=== PATIENT | female | born 1955 | race Asian ===

== ENCOUNTER 2017-01-07 07:27 | Inpatient (IN) | payer OTHER ==
[~2017-01-07] VITALS: Ht 167.6 cm; Wt 84.0 kg
[2017-01-07] MEDS ORDERED: VERAPAMIL HYDR240 MG PO (08:03)
[2017-01-07 08:12] LABS: BASOPHIL % 0.7 % (0-2); PLATELET COUNT 232 x10^3mcL (130-400)
[2017-01-07 08:14] LABS: RED CELL DISTRIBUTION WIDTH 14.6 % (11.5-14.5)
[2017-01-07 08:24] LABS: CALCIUM 9.4 mg/dL (8.5-10.1); CARBON DIOXIDE 25.4 mmol/L (21-32); CHLORIDE SERUM 107 mmol/L (98-107); CREATININE SERUM 0.8 mg/dL (0.6-1.0); GFR1 > 60 mL/min; GLUCOSE SERUM 140 mg/dL (74-106); POTASSIUM SERUM 4.1 mmol/L (3.5-5.1); SODIUM SERUM 142 mmol/L (136-145)
[2017-01-07 08:36] LABS: ALKALINE PHOSPHATASE 78 U/L (46-116); ALT/SGPT 57 U/L (14-59); AST/SGOT 40 U/L (15-37); TOTAL PROTEIN, SERUM 7.7 g/dL (6.4-8.2)
[2017-01-07 08:38] LABS: ALBUMIN 3.1 g/dL (3.4-5.0); T4(THYROXINE) 15.6 ug/dL (4.7-13.3)
[2017-01-07 10:02] LABS: AMPHETAMINE QUAL UR NONE DETECTED (NEG <=1000)
[2017-01-07 14:00] VITALS: BP 132/63
[2017-01-07 17:00] VITALS: BP 112/79
[2017-01-07 20:27] VITALS: BP 145/69
[2017-01-08 04:42] LABS: BASOPHIL % 0.1 % (0-2); PLATELET COUNT 217 x10^3mcL (130-400); RED CELL DISTRIBUTION WIDTH 14.5 % (11.5-14.5)
[2017-01-08 04:48] LABS: CALCIUM 8.8 mg/dL (8.5-10.1); CARBON DIOXIDE 25.4 mmol/L (21-32); CHLORIDE SERUM 106 mmol/L (98-107); CHOLESTEROL 136 mg/dL (<200); CHOLESTEROL/HDL RATIO 3.8; CREATININE SERUM 0.7 mg/dL (0.6-1.0); GFR1 > 60 mL/min; GLUCOSE SERUM 126 mg/dL (74-106); HDL CHOLESTEROL 36 mg/dL (40-60); SODIUM SERUM 137 mmol/L (136-145); TRIGLYCERIDES 94 mg/dL (<150)
[2017-01-08 05:23] VITALS: BP 160/62
[2017-01-08 08:48] LABS: FREE T4 3.1 ng/dL (0.76-1.46)
[2017-01-08 08:50] VITALS: BP 137/66
[2017-01-08 08:59] LABS: FREE THYROXINE INDEX 5.9 ug/dL (1.4-4.5); T4(THYROXINE) 13.5 ug/dL (4.7-13.3)
[2017-01-08 09:22] LABS: T3 TOTAL 1.93 ng/mL
[2017-01-08 13:45] VITALS: BP 142/79
[2017-01-08 15:52] LABS: UA SPECIFIC GRAVITY <=1.005 (1.005-1.035); microscopic required? YES; urine erythrocyte TRACE (NEGATIVE)
[2017-01-08 17:38] VITALS: BP 149/67
[2017-01-08 22:05] VITALS: BP 177/87
[2017-01-09] VITALS: BP 160/78
[2017-01-09 06:40] VITALS: BP 176/80
[2017-01-09 07:17] VITALS: BP 164/71
[2017-01-09] MEDS ORDERED: ZES10 PO (07:49)
[2017-01-09] MEDS ORDERED: TAP5 PO (07:50)
[2017-01-09 09:25] VITALS: BP 158/70
[2017-01-09 09:54] VITALS: BP 158/70
== END 2017-01-09 10:45 | disposition home or self-care (01) | DRG 643 ==
LOC: ED 07:27 → DU 09:37
PROVIDERS: Emergency Medicine; ADMIT Family Medicine
DX: E05.90 Thyrotoxicosis, unspecified without thyrotoxic crisis or storm (principal); N17.0 Acute kidney failure with tubular necrosis; I47.1 Supraventricular tachycardia; I10 Essential (primary) hypertension; R73.03 Prediabetes; Z71.3 Dietary counseling and surveillance
CPT/HCPCS: 82962; 83880; 84439; J0153; J1644; J3475; J3490; J7030; J8540; Q0092

== ENCOUNTER 2017-02-04 10:00 | Emergency (ER) | payer OTHER ==
[~2017-02-04 10:00] MED LIST: TAP5 PO; VERAPAMIL HYDR240 MG PO; ZES10 PO
[2017-02-04 10:54] LABS: BASOPHIL % 0.3 % (0-2); PLATELET COUNT 240 x10^3mcL (130-400); RED CELL DISTRIBUTION WIDTH 13.3 % (11.5-14.5)
[2017-02-04 11:04] LABS: CARBON DIOXIDE 31.5 mmol/L (21-32); CHLORIDE SERUM 103 mmol/L (98-107); CREATININE SERUM 0.9 mg/dL (0.6-1.0); GFR1 > 60 mL/min; GLUCOSE SERUM 99 mg/dL (74-106); POTASSIUM SERUM 3.9 mmol/L (3.5-5.1); SODIUM SERUM 140 mmol/L (136-145)
[2017-02-04 11:09] LABS: ALBUMIN 3.1 g/dL (3.4-5.0); ALKALINE PHOSPHATASE 84 U/L (46-116); ALT/SGPT 22 U/L (14-59); AST/SGOT 19 U/L (15-37); BILIRUBIN TOTAL 0.4 mg/dL (0.20-1.00); TOTAL PROTEIN, SERUM 7.7 g/dL (6.4-8.2)
[2017-02-04 11:39] VITALS: BP 135/73
== END 2017-02-04 12:02 | disposition home or self-care (01) ==
LOC: ED 10:00
PROVIDERS: Emergency Medicine
DX: T38.2X1A Poisoning by antithyroid drugs, accidental (unintentional), initial encounter (principal); Y92.89 Other specified places as the place of occurrence of the external cause; I10 Essential (primary) hypertension; E07.9 Disorder of thyroid, unspecified
CPT/HCPCS: 36415; Q0092

== ENCOUNTER 2017-02-18 21:01 | Emergency (ER) | payer OTHER ==
[2017-02-19 02:39] VITALS: BP 158/80
== END 2017-02-19 02:39 | disposition home or self-care (01) ==
LOC: ED 21:01
DX: Z76.0 Encounter for issue of repeat prescription (principal); I10 Essential (primary) hypertension; Z79.899 Other long term (current) drug therapy

== ENCOUNTER 2017-03-01 08:46 | Inpatient (IN) | payer OTHER ==
[~2017-03-01] VITALS: Ht 162.6 cm; Wt 85.8 kg
[2017-03-01 10:25] LABS: BASOPHIL % 0.3 % (0-2); PLATELET COUNT 275 x10^3mcL (130-400)
[2017-03-01 10:34] LABS: CARBON DIOXIDE 28.6 mmol/L (21-32); POTASSIUM SERUM 3.9 mmol/L (3.5-5.1)
[2017-03-01] MEDS ORDERED: METHIMAZOLE5 MG PO (10:36)
[2017-03-01 10:39] LABS: BILIRUBIN TOTAL 0.5 mg/dL (0.20-1.00)
[2017-03-01 10:40] LABS: ALBUMIN 3.3 g/dL (3.4-5.0)
[2017-03-01] MEDS ORDERED: IND40 PO (10:41)
[2017-03-01] MEDS ORDERED: FIORICET1 CAP PO (10:42)
[2017-03-01 13:07] LABS: CHOLESTEROL/HDL RATIO 4.1; PHOSPHOROUS 3.4 mg/dL (2.5-4.9)
[2017-03-01 13:14] LABS: UA SPECIFIC GRAVITY <=1.005 (1.005-1.035); microscopic required? YES; urine erythrocyte TRACE (NEGATIVE)
[2017-03-01 13:18] LABS: FREE T4 0.96 ng/dL (0.76-1.46); FREE THYROXINE INDEX 2.3 ug/dL (1.4-4.5)
[2017-03-01 13:20] LABS: T3 TOTAL 0.74 ng/mL
[2017-03-01 13:57] LABS: AMPHETAMINE QUAL UR NONE DETECTED (NEG <=1000)
[2017-03-01 14:06] VITALS: BP 99/57
[2017-03-01 16:55] VITALS: BP 121/62
[2017-03-01 17:48] VITALS: Ht 162.6 cm; Wt 85.8 kg
[2017-03-01 22:44] VITALS: BP 141/70
[2017-03-02 04:14] LABS: CARBON DIOXIDE 26.4 mmol/L (21-32); CHLORIDE SERUM 108 mmol/L (98-107); CREATININE SERUM 0.9 mg/dL (0.6-1.0); GFR1 > 60 mL/min; GLUCOSE SERUM 95 mg/dL (74-106); MAGNESIUM 2.1 mg/dL (1.8-2.4); POTASSIUM SERUM 4.1 mmol/L (3.5-5.1); SODIUM SERUM 141 mmol/L (136-145)
[2017-03-02 07:13] VITALS: BP 137/65
[2017-03-02 10:01] VITALS: BP 140/67
[2017-03-02 13:16] VITALS: BP 144/68
[2017-03-02 18:30] VITALS: BP 135/65
[2017-03-02 22:21] VITALS: BP 136/109
[2017-03-03 08:54] LABS: CALCIUM 9.2 mg/dL (8.5-10.1); CARBON DIOXIDE 31.3 mmol/L (21-32); CHLORIDE SERUM 105 mmol/L (98-107); CREATININE SERUM 0.8 mg/dL (0.6-1.0); GFR1 > 60 mL/min; GLUCOSE SERUM 91 mg/dL (74-106); POTASSIUM SERUM 4.3 mmol/L (3.5-5.1); SODIUM SERUM 143 mmol/L (136-145)
[2017-03-03 08:59] LABS: BASOPHIL % 0.6 % (0-2); PLATELET COUNT 244 x10^3mcL (130-400); RED CELL DISTRIBUTION WIDTH 14.3 % (11.5-14.5)
[2017-03-03 09:16] VITALS: BP 142/75
[2017-03-03] MEDS ORDERED: LOSARTAN POTASS25 M1 PO (09:33)
[2017-03-03 11:04] VITALS: BP 142/75
[2017-03-03] MEDS ORDERED: TAP5 PO (11:30)
== END 2017-03-03 12:25 | disposition home or self-care (01) | DRG 309 ==
LOC: ED 08:46 → DU 10:51
PROVIDERS: Emergency Medicine; ADMIT Family Medicine
DX: R00.1 Bradycardia, unspecified (principal); E44.0 Moderate protein-calorie malnutrition; E03.9 Hypothyroidism, unspecified; I10 Essential (primary) hypertension; E05.90 Thyrotoxicosis, unspecified without thyrotoxic crisis or storm; E78.00 Pure hypercholesterolemia, unspecified; T44.7X5A Adverse effect of beta-adrenoreceptor antagonists, initial encounter; E78.5 Hyperlipidemia, unspecified; E87.8 Other disorders of electrolyte and fluid balance, not elsewhere classified; E66.9 Obesity, unspecified; Z68.32 Body mass index [BMI] 32.0-32.9, adult; Y92.018 Other place in single-family (private) house as the place of occurrence of the external cause; Z90.49 Acquired absence of other specified parts of digestive tract
CPT/HCPCS: 82962; 83880; 84439; J7030; Q0092

== ENCOUNTER → 2017-09-19 | Outpatient (CLI) | payer OTHER ==
[~2017-09-19] MED LIST changes: +FIORICET1 CAP PO; +IND40 PO; +LOSARTAN POTASS25 M1 PO; +METHIMAZOLE5 MG PO
== END | disposition home or self-care (01) ==
LOC: US 14:44
PROC: BG44ZZZ Ultrasonography of Thyroid Gland (ICD-10-PCS; principal; 2017-09-19)
DX: E05.90 Thyrotoxicosis, unspecified without thyrotoxic crisis or storm (principal)

== ENCOUNTER → 2017-11-11 | Outpatient (CLI) | payer OTHER ==
[2017-11-11 10:39] LABS: BASOPHIL % 0.4 % (0-2); PLATELET COUNT 251 x10^3mcL (130-400); RED CELL DISTRIBUTION WIDTH 14.1 % (11.5-14.5)
[2017-11-11 11:10] LABS: T3 TOTAL 0.88 ng/mL
[2017-11-11 11:25] LABS: ALKALINE PHOSPHATASE 81 U/L (46-116); ALT/SGPT 26 U/L (14-59); AST/SGOT 24 U/L (15-37); BILIRUBIN TOTAL 0.36 mg/dL (0.20-1.00); CALCIUM 8.9 mg/dL (8.5-10.1); CARBON DIOXIDE 30.1 mmol/L (21-32); CHLORIDE SERUM 104 mmol/L (98-107); CHOLESTEROL 192 mg/dL (<200); CHOLESTEROL/HDL RATIO 4.1; CREATININE SERUM 0.8 mg/dL (0.6-1.0); FREE T4 0.84 ng/dL (0.76-1.46); GFR1 > 60 mL/min; GLUCOSE SERUM 91 mg/dL (74-106); HDL CHOLESTEROL 47 mg/dL (40-60); POTASSIUM SERUM 3.9 mmol/L (3.5-5.1); SODIUM SERUM 140 mmol/L (136-145); TOTAL PROTEIN, SERUM 7.8 g/dL (6.4-8.2); TRIGLYCERIDES 62 mg/dL (<150)
[2017-11-11 12:04] LABS: ALBUMIN 3.3 g/dL (3.4-5.0)
== END | disposition home or self-care (01) ==
LOC: LB 10:12
PROVIDERS: Family Medicine
DX: R73.09 Other abnormal glucose (principal); E66.09 Other obesity due to excess calories; I10 Essential (primary) hypertension
CPT/HCPCS: 84439

== ENCOUNTER 2018-02-06 19:39 | Inpatient (IN) | payer OTHER ==
[~2018-02-06] VITALS: Ht 167.6 cm; Wt 81.9 kg
[2018-02-06 19:53] VITALS: Ht 167.6 cm; Wt 81.9 kg
[2018-02-06 20:44] LABS: microscopic required? NO
[2018-02-06 20:51] LABS: PLATELET COUNT 261 x10^3mcL (130-400); RED CELL DISTRIBUTION WIDTH 13.8 % (11.5-14.5)
[2018-02-06 20:53] LABS: CHLORIDE SERUM 104 mmol/L (98-107); POTASSIUM SERUM 3.7 mmol/L (3.5-5.1)
[2018-02-06 21:32] LABS: ALBUMIN 3.4 g/dL (3.4-5.0); ALKALINE PHOSPHATASE 95 U/L (46-116); ALT/SGPT 24 U/L (14-59); AST/SGOT 27 U/L (15-37); BILIRUBIN TOTAL 0.3 mg/dL (0.20-1.00); CALCIUM 8.8 mg/dL (8.5-10.1); CREATININE SERUM 0.8 mg/dL (0.6-1.0); GFR1 > 60 mL/min; GLUCOSE SERUM 98 mg/dL (74-106); SODIUM SERUM 140 mmol/L (136-145)
[2018-02-06 21:39] LABS: TOTAL PROTEIN, SERUM 8.3 g/dL (6.4-8.2)
[2018-02-06 21:39] LABS: UA SPECIFIC GRAVITY <=1.005 (1.005-1.035); urine erythrocyte NEGATIVE (NEGATIVE)
[2018-02-07] VITALS (7 sets, daily range): BP systolic 106–153; BP diastolic 61–83
[2018-02-07 03:21] LABS: MAGNESIUM 2.1 mg/dL (1.8-2.4)
[2018-02-07 03:25] LABS: CHOLESTEROL/HDL RATIO 4.4
[2018-02-07 07:20] LABS: BASOPHIL % 0.4 % (0-2); PLATELET COUNT 232 x10^3mcL (130-400); RED CELL DISTRIBUTION WIDTH 14.3 % (11.5-14.5)
[2018-02-07 10:16] LABS: CALCIUM 8.7 mg/dL (8.5-10.1); CARBON DIOXIDE 30.8 mmol/L (21-32); CHLORIDE SERUM 104 mmol/L (98-107); CREATININE SERUM 0.8 mg/dL (0.6-1.0); GFR1 > 60 mL/min; GLUCOSE SERUM 91 mg/dL (74-106); POTASSIUM SERUM 4.1 mmol/L (3.5-5.1); SODIUM SERUM 140 mmol/L (136-145)
[2018-02-08 05:52] VITALS: BP 128/77
[2018-02-08 08:58] VITALS: BP 126/73
[2018-02-08 11:16] VITALS: BP 126/73
[2018-02-08 13:29] VITALS: BP 132/75
== END 2018-02-08 13:20 | disposition home or self-care (01) | DRG 204 ==
LOC: ED 19:39 → DU 23:41
PROVIDERS: Emergency Medicine; Internal Medicine
DX: R06.00 Dyspnea, unspecified (principal); I49.8 Other specified cardiac arrhythmias; J44.9 Chronic obstructive pulmonary disease, unspecified; E03.9 Hypothyroidism, unspecified; I25.10 Atherosclerotic heart disease of native coronary artery without angina pectoris; I10 Essential (primary) hypertension; Z79.82 Long term (current) use of aspirin; Z68.30 Body mass index [BMI] 30.0-30.9, adult; Z86.711 Personal history of pulmonary embolism; Z86.718 Personal history of other venous thrombosis and embolism
CPT/HCPCS: 84439; 85378

== ENCOUNTER → 2018-02-27 | Outpatient (CLI) | payer OTHER ==
[2018-02-27 14:36] LABS: T3 TOTAL 0.98 ng/mL
== END | disposition home or self-care (01) ==
LOC: LB 12:53
DX: E55.9 Vitamin D deficiency, unspecified (principal); R73.09 Other abnormal glucose

== ENCOUNTER 2018-04-14 12:06 | Inpatient (IN) | payer OTHER ==
[~2018-04-14] VITALS: Ht 167.6 cm; Wt 85.4 kg
[2018-04-14 12:16] VITALS: Ht 167.6 cm; Wt 85.4 kg
[2018-04-14 15:26] LABS: BASOPHIL % 0.2 % (0-2); PLATELET COUNT 251 x10^3mcL (130-400); RED CELL DISTRIBUTION WIDTH 14.1 % (11.5-14.5)
[2018-04-14 15:35] LABS: CALCIUM 8.5 mg/dL (8.5-10.1); CARBON DIOXIDE 26.2 mmol/L (21-32); CHLORIDE SERUM 102 mmol/L (98-107); CREATININE SERUM 0.9 mg/dL (0.6-1.0); GFR1 > 60 mL/min; GLUCOSE SERUM 93 mg/dL (74-106); POTASSIUM SERUM 3.7 mmol/L (3.5-5.1); SODIUM SERUM 139 mmol/L (136-145)
[2018-04-14 15:42] LABS: ALBUMIN 3.6 g/dL (3.4-5.0); ALKALINE PHOSPHATASE 100 U/L (46-116); ALT/SGPT 36 U/L (14-59); AST/SGOT 32 U/L (15-37); BILIRUBIN TOTAL 0.76 mg/dL (0.20-1.00); LIPASE 101 IU/L (73-393)
[2018-04-14 15:48] LABS: TOTAL PROTEIN, SERUM 8.7 g/dL (6.4-8.2)
[2018-04-14 17:18] LABS: T3 TOTAL 0.68 ng/mL
[2018-04-14 17:19] LABS: FREE T4 0.96 ng/dL (0.76-1.46); T4(THYROXINE) 5.6 ug/dL (4.7-13.3)
[2018-04-14] MEDS ORDERED: LOSARTAN POTAS100 M1 PO (18:21)
[2018-04-14 19:08] VITALS: BP 148/63
[2018-04-15 05:28] VITALS: BP 149/77
[2018-04-15 08:08] VITALS: BP 157/77
[2018-04-15 13:02] VITALS: BP 157/77
[2018-04-15 13:08] VITALS: BP 153/78
== END 2018-04-15 14:26 | disposition home or self-care (01) | DRG 392 ==
LOC: ED 12:06 → DU 18:25
PROVIDERS: Emergency Medicine
DX: K52.9 Noninfective gastroenteritis and colitis, unspecified (principal); E86.0 Dehydration; I10 Essential (primary) hypertension; I49.9 Cardiac arrhythmia, unspecified; E05.90 Thyrotoxicosis, unspecified without thyrotoxic crisis or storm; I25.10 Atherosclerotic heart disease of native coronary artery without angina pectoris; Z79.899 Other long term (current) drug therapy
CPT/HCPCS: 84439; 87046; 87046-59; J1956; J7030

== ENCOUNTER 2018-06-10 11:38 | Emergency (ER) | payer OTHER ==
[~2018-06-10] VITALS: Ht 165.1 cm; Wt 83.9 kg
[~2018-06-10 11:38] MED LIST changes: +LOSARTAN POTAS100 M1 PO
[2018-06-10 11:52] VITALS: Ht 165.1 cm; Wt 83.9 kg
[2018-06-10 12:45] LABS: microscopic required? YES; urine erythrocyte TRACE (NEGATIVE)
[2018-06-10 12:53] LABS: AMPHETAMINE QUAL UR NONE DETECTED (See below)
[2018-06-10 12:53] LABS: BASOPHIL % 0.5 % (0-2); PLATELET COUNT 269 x10^3mcL (130-400); RED CELL DISTRIBUTION WIDTH 13.8 % (11.5-14.5)
[2018-06-10 13:03] LABS: CALCIUM 8.4 mg/dL (8.5-10.1); CARBON DIOXIDE 28.6 mmol/L (21-32); CHLORIDE SERUM 101 mmol/L (98-107); CREATININE SERUM 0.8 mg/dL (0.6-1.0); GFR1 > 60 mL/min; GLUCOSE SERUM 103 mg/dL (74-106); POTASSIUM SERUM 3.7 mmol/L (3.5-5.1); SODIUM SERUM 138 mmol/L (136-145)
[2018-06-10 13:15] LABS: ALBUMIN 3.4 g/dL (3.4-5.0); ALKALINE PHOSPHATASE 94 U/L (46-116); ALT/SGPT 19 U/L (14-59); AMYLASE 101 U/L (25-115); AST/SGOT 23 U/L (15-37); BILIRUBIN TOTAL 0.48 mg/dL (0.20-1.00); CHOLESTEROL 196 mg/dL (<200); HDL CHOLESTEROL 51 mg/dL (40-60); LIPASE 156 IU/L (73-393); MAGNESIUM 1.9 mg/dL (1.8-2.4); T4(THYROXINE) 5.5 ug/dL (4.7-13.3)
[2018-06-10 13:21] LABS: TOTAL PROTEIN, SERUM 8.4 g/dL (6.4-8.2)
[2018-06-10 15:38] VITALS: BP 149/91
== END 2018-06-10 15:38 | disposition home or self-care (01) ==
LOC: ED 11:38
PROVIDERS: Emergency Medicine
DX: R42 Dizziness and giddiness (principal); R53.1 Weakness; R05 Cough; I10 Essential (primary) hypertension; E05.90 Thyrotoxicosis, unspecified without thyrotoxic crisis or storm; I49.9 Cardiac arrhythmia, unspecified
CPT/HCPCS: 82962; 83880; 87804; J8597; Q0092

== ENCOUNTER → 2018-10-06 | Outpatient (CLI) | payer OTHER ==
[2018-10-06 09:50] LABS: BASOPHIL % 0.2 % (0-2); PLATELET COUNT 262 x10^3mcL (130-400); RED CELL DISTRIBUTION WIDTH 13.8 % (11.5-14.5)
[2018-10-06 09:59] LABS: ALBUMIN 3.4 g/dL (3.4-5.0); ALKALINE PHOSPHATASE 85 U/L (46-116); ALT/SGPT 28 U/L (14-59); AST/SGOT 23 U/L (15-37); BILIRUBIN TOTAL 0.61 mg/dL (0.20-1.00); CALCIUM 8.9 mg/dL (8.5-10.1); CARBON DIOXIDE 30.5 mmol/L (21-32); CHLORIDE SERUM 105 mmol/L (98-107); CHOLESTEROL 194 mg/dL (<200); CHOLESTEROL/HDL RATIO 3.9; CREATININE SERUM 0.8 mg/dL (0.6-1.0); FREE T4 0.95 ng/dL (0.76-1.46); GFR1 > 60 mL/min; GLUCOSE SERUM 94 mg/dL (74-106); HDL CHOLESTEROL 50 mg/dL (40-60); POTASSIUM SERUM 3.5 mmol/L (3.5-5.1); SODIUM SERUM 141 mmol/L (136-145); TOTAL PROTEIN, SERUM 8.1 g/dL (6.4-8.2); TRIGLYCERIDES 51 mg/dL (<150)
== END | disposition home or self-care (01) ==
LOC: LB 09:08
DX: E85.2 Heredofamilial amyloidosis, unspecified (principal); R73.09 Other abnormal glucose; E66.09 Other obesity due to excess calories; E55.9 Vitamin D deficiency, unspecified; E53.8 Deficiency of other specified B group vitamins; I10 Essential (primary) hypertension
CPT/HCPCS: 84439

== ENCOUNTER → 2019-04-17 | Outpatient (CLI) | payer OTHER ==
[2019-04-17 08:42] LABS: BASOPHIL % 0.5 % (0-2); PLATELET COUNT 251 x10^3mcL (130-400); RED CELL DISTRIBUTION WIDTH 14.5 % (11.5-14.5)
[2019-04-17 09:15] LABS: ALKALINE PHOSPHATASE 83 U/L (46-116); ALT/SGPT 21 U/L (14-59); AST/SGOT 21 U/L (15-37); BILIRUBIN TOTAL 0.7 mg/dL (0.20-1.00); CALCIUM 8.6 mg/dL (8.5-10.1); CARBON DIOXIDE 29.5 mmol/L (21-32); CHLORIDE SERUM 105 mmol/L (98-107); CREATININE SERUM 0.9 mg/dL (0.6-1.0); FREE T4 1.01 ng/dL (0.76-1.46); GFR1 > 60 mL/min; GLUCOSE SERUM 89 mg/dL (74-106); POTASSIUM SERUM 3.8 mmol/L (3.5-5.1); SODIUM SERUM 140 mmol/L (136-145); TOTAL PROTEIN, SERUM 7.7 g/dL (6.4-8.2)
[2019-04-17 09:16] LABS: ALBUMIN 3.2 g/dL (3.4-5.0)
[2019-04-17 10:25] LABS: T3 TOTAL 0.89 ng/mL
== END | disposition home or self-care (01) ==
LOC: LB 08:11
DX: R73.09 Other abnormal glucose (principal); E66.09 Other obesity due to excess calories; I10 Essential (primary) hypertension; E55.9 Vitamin D deficiency, unspecified
CPT/HCPCS: 84439

== ENCOUNTER 2020-04-09 08:19 | Emergency (ER) | payer OTHER ==
[~2020-04-09] VITALS: Ht 165.1 cm; Wt 81.6 kg
[2020-04-09 08:32] VITALS: Ht 165.1 cm; Wt 81.6 kg
[2020-04-09 09:19] LABS: BASOPHIL % 0.6 % (0-2); PLATELET COUNT 245 x10^3mcL (130-400); RED CELL DISTRIBUTION WIDTH 14.1 % (11.5-14.5)
[2020-04-09 09:27] LABS: CALCIUM 9.3 mg/dL (8.5-10.1); CARBON DIOXIDE 28.8 mmol/L (21-32); CHLORIDE SERUM 103 mmol/L (98-107); CREATININE SERUM 0.9 mg/dL (0.6-1.0); GFR1 > 60 mL/min; GLUCOSE SERUM 91 mg/dL (74-106); POTASSIUM SERUM 3.8 mmol/L (3.5-5.1); SODIUM SERUM 138 mmol/L (136-145)
[2020-04-09 09:32] LABS: ALBUMIN 3.4 g/dL (3.4-5.0); ALKALINE PHOSPHATASE 81 U/L (46-116); ALT/SGPT 22 U/L (14-59); AST/SGOT 22 U/L (15-37); BILIRUBIN TOTAL 0.8 mg/dL (0.20-1.00); TOTAL PROTEIN, SERUM 8.1 g/dL (6.4-8.2)
[2020-04-09 10:34] LABS: FREE T4 1.11 ng/dL (0.76-1.46)
[2020-04-09 12:59] VITALS: BP 138/64
== END 2020-04-09 12:59 | disposition home or self-care (01) ==
LOC: ED 08:19
PROVIDERS: Emergency Medicine
DX: R53.83 Other fatigue (principal); R55 Syncope and collapse; I49.9 Cardiac arrhythmia, unspecified; I10 Essential (primary) hypertension; E05.90 Thyrotoxicosis, unspecified without thyrotoxic crisis or storm; Z98.890 Other specified postprocedural states
CPT/HCPCS: 82962; 83880; 84439; Q0092